=== PATIENT | male | born 1990 | race Native Hawaiian/Other Pacific Islander ===

== ENCOUNTER 2020-09-03 18:25 | Outpatient (CLI) | payer OTHER ==
[2020-09-03 18:57] LABS: PLATELET COUNT 135 K/uL (142-355)
[2020-09-03 19:18] LABS: POTASSIUM 4.4 mmol/L (3.6-5.2)
== END 2020-09-03 22:10 | disposition home or self-care (01) ==
LOC: LAB 18:25
PROVIDERS: ATTEND Nurse Practitioner Family
DX: I10 Essential (primary) hypertension (principal); R07.89 Other chest pain; Z82.49 Family history of ischemic heart disease and other diseases of the circulatory system
CPT/HCPCS: 80053; 80061; 84443; 85027